=== PATIENT | female | born 1990 | race Caucasian/White ===

== ENCOUNTER 2020-05-08 19:07 | Emergency (ER) | payer OTHER ==
[2020-05-08 19:20] VITALS: TEMP 98.6; BMI 30.4
[2020-05-08] MEDS ORDERED: ACETAMINOPHEN 325 MG TABLET (FP) PO ONE (20:36)
[2020-05-08] MEDS ORDERED: ACETAMINOPHEN 325 MG TABLET (FP) ONE (20:42)
[2020-05-08 21:27] LABS: BASO % 0.5 % (0-2.0); EOS % 1.4 % (0-4.5); HEMATOCRIT 42.9 % (32.4-45.2); HEMOGLOBIN 14.4 GM/dL (10.7-15.3); LYMPH % 30.3 % (8-40); MCH 29.5 pg (25.7-33.7); MCHC 33.6 g/dl (32.0-36.0); MEAN CELL VOLUME 87.6 fl (80-96); MEAN PLT VOLUME 7.9 fl (7.5-11.1); MONO % 6.6 % (3.8-10.2); NEUT % 61.2 % (42.8-82.8); PLATELET COUNT 460 K/MM3 (134-434); RDW 13.2 % (11.6-15.6); WHITE BLOOD COUNT 12.9 K/mm3 (4.0-10.0)
[2020-05-08 21:46] LABS: CHLORIDE 104 mmol/L (98-107); SODIUM 132 mmol/L (136-145)
[2020-05-08 21:48] LABS: ALBUMIN 3.9 g/dl (3.4-5.0); BLOOD UREA NITROGEN 16.1 mg/dL (7-18); CALCIUM 9.7 mg/dL (8.5-10.1); CO2 25 mmol/L (21-32); GLUCOSE,RANDOM 115 mg/dL (74-106); MAGNESIUM 2.3 mg/dL (1.8-2.4)
[2020-05-08 21:51] LABS: EPI CELLS >36 /uL (0-25.1); HYALINE CASTS 1 /uL (0-3.1); URINE APPEARANCE CLOUDY; URINE BACTERIA 127 /uL (0-1359); URINE BILIRUBIN NEGATIVE (NEGATIVE); URINE COLOR YELLOW; URINE GLUCOSE (UA) NEGATIVE (NEGATIVE); URINE KETONE TRACE (NEGATIVE); URINE LEUK ESTERASE NEGATIVE (NEGATIVE); URINE NITRITE NEGATIVE (NEGATIVE); URINE PROTEIN NEGATIVE (NEGATIVE); URINE RBC 24 /uL (0-23.9); URINE WBC 8 /uL (0-25.8)
[2020-05-08 21:51] LABS: CREATININE 0.8 mg/dL (0.55-1.3); PHOSPHOROUS 4.5 mg/dL (2.5-4.9)
[2020-05-08 21:53] LABS: TOT PROT 8.8 g/dl (6.4-8.2)
[2020-05-08 21:54] LABS: ALK PHOS 93 U/L (45-117)
[2020-05-08 22:14] LABS: ANION GAP 3 MMOL/L (8-16); POTASSIUM 8.5 mmol/L (3.5-5.1); SGOT/AST 118 U/L (15-37); SGPT/ALT 38 U/L (13-61)
[2020-05-08 22:16] VITALS: BP 137/80; PULSE 83
[2020-05-08 22:18] LABS: BILIRUBIN,TOTAL < 0.1 mg/dL (0.2-1)
[2020-05-08] MEDS ORDERED: IBUPROFEN 600 MG TABLET (FP) PO ONE ×2 (22:59→23:15)
== END 2020-05-08 23:22 | disposition home or self-care (01) ==
LOC: JER 19:07
DX: N83.209 Unspecified ovarian cyst, unspecified side (principal); R07.9 Chest pain, unspecified
CPT/HCPCS: 36415; 71046-TC-FY; 76830-TC; 80053; 81003; 82550; 82553; 83735; 84100; 84132; 84484; 84703; 85025; 87086; 93005; 93010; 99285-25